=== PATIENT | male | born 2000 | race Caucasian/White ===

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

== ENCOUNTER 2021-04-30 10:49 | Emergency (ER) | payer OTHER, SELFPAY ==
[2021-04-30 11:04] VITALS: BP 121/51; PULSE 63; RESP 16; TEMP 36.4; O2SAT 100
--- NOTE | 2021-04-30 11:04 | ED.URI ---
HPI - URI/Sore Throat General Chief Complaint: Upper Respiratory Infection Stated Complaint: Throat pain Source: patient and family Mode of arrival: ambulatory Limitations: no limitations History of Present Illness HPI Narrative: 20-year-old male presented with mother for complaint of sore throat and left ear pain, onset this morning. Patient is able to swallow. Mother endorses history of recurrent ear infections and strep throat as a child. Patient currently denies headache, nausea, vomiting, diarrhea, fever or chills. Denies cough or shortness of breath. Not taking anything for symptoms. Fully vaccinated for Covid, no flu vaccine. MD elicited complaint: cough Related Data Allergies Allergy/AdvReac Type Severity Reaction Status Date / Time No Known Allergies Allergy Verified 04/30/21 10:57 Review of Systems Review of Systems: CONSTITUTIONAL: Denies malaise, chills, sweats, fever. EYES: Denies visual changes, redness, or discharge. ENT: Endorses otalgia and sore throat. Reports rhinorrhea, congestion, sinus pain CARDIOVASCULAR: Denies chest pain, palpitations, or edema. RESPIRATORY: Reports cough, post nasal drainage. Denies dyspnea. GASTROINTESTINAL: Denies abdominal pain, nausea, vomiting, diarrhea SKIN: Denies rash or itching. MUSCULOSKELETAL: denies myalgia. NEUROLOGIC: Denies headache. [facility] Past Medical History Medical History (Updated 04/30/21 @ 11:15 by Polly Figueroa APRN) History of ADHD Social History Social History Substance use: never Exam Narrative: GENERAL: Ill-appearing, nontoxic no acute distress. HEAD: Normocephalic EYES: PERRLA, conjunctivae clear ENT: Mucous membranes moist. Right TM pearly vazquez with dull light reflex; left TM dull, erythematous canal, scarring noted; no tragal tenderness. Oropharynx erythematous without lesions. Tonsils without exudate, no drooling, no hoarseness, no trismus, uvula midline. NECK: Supple. No lymphadenopathy CHEST: Clear to auscultation, breath sounds equal. No wheezing, rhonchi, rales, or stridor. No respiratory distress, speaks in full sentences. HEART: Regular rate and rhythm. No murmur heard. SKIN: Warm, dry, no rash. NEURO: Alert and oriented x3. PSYCH: Normal mood and affect Course Course Emergency Course: strep neg Patient is aware of diagnosis, understands and agrees to treatment plan. Anticipatory guidance given. Patient agrees to follow-up as directed and is aware of reasons to seek care at the emergency department. Portions of this record may have been created with voice recognition software Level of Care: Express Care Visit Vital Signs Vital signs: reviewed MDM - URI/Sore Throat Differential Diagnosis Differential diagnosis: Likely upper respiratory infection, otitis media, viral infection and pharyngitis Lab Data Attestation: I reviewed the patient's lab results. Discharge Plan Discharge Clinical Impression: Otitis media Qualifiers: Otitis media type: suppurative Chronicity: acute Laterality: left Recurrence: non-recurrent Spontaneous tympanic membrane rupture: without spontaneous rupture Qualified Code(s): H66.002 - Acute suppurative otitis media without spontaneous rupture of ear drum, left ear Pharyngitis Qualifiers: Pharyngitis/tonsillitis etiology: unspecified etiology Qualified Code(s): J02.9 - Acute pharyngitis, unspecified Patient Disposition: Home, Self-Care Condition: Stable Instructions: Antibiotic Form, Ear Infection (ED) Additional Instructions: Take antibiotic as directed for a left ear infection. Rapid strep swab was negative today You will be notified in a few days if the culture comes back positive for strep if symptoms are due to a viral illness, it is not treated with antibiotics. Viral symptoms can be present for up to 10-14 days. Soft foods, cool liquids, Gargle with warm salt water twice a day. Take Tylenol for fever or pain. R
== END 2021-04-30 11:17 | disposition home or self-care (01) ==
PROVIDERS: Emergency Provider Nurse Practitioner Family; PCP Family Medicine
DX: H66.002 Acute suppurative otitis media without spontaneous rupture of ear drum, left ear (principal); J02.9 Acute pharyngitis, unspecified
CPT/HCPCS: 87081; 87880; 99213; G0463